=== PATIENT | female | born 1940 | race Caucasian/White ===

== ENCOUNTER 2018-04-28 08:46 | Day surgery (SDC) | payer MEDICARE, OTHER ==
[2018-04-28] VITALS (13 sets, daily range): BP systolic 112–152; BP diastolic 55–76
[~2018-04-28] VITALS: Ht 170.2 cm; Wt 56.4 kg
[~2018-04-28 08:46] MED LIST: HYDR-565 PO; LEVO25TA2 PO; OMEP-84 PO; ZOC40T PO
[2018-04-28] MEDS ORDERED: acetaminophen 325mg tablet PO PRN (09:05)
[2018-04-28] MEDS ORDERED: dexamethasone sod phosphate 4mg/ml inj. IV PRN (09:05)
[2018-04-28] MEDS ORDERED: diphenhydrAMINE 25mg capsule PO PRN (09:05)
== END 2018-04-28 14:30 | disposition home or self-care (01) ==
LOC: SSTAY O 08:46
PROVIDERS: ATTEND Internal Medicine Hematology & Oncology
DX: D46.9 Myelodysplastic syndrome, unspecified (principal); D69.3 Immune thrombocytopenic purpura; E78.5 Hyperlipidemia, unspecified; K21.9 Gastro-esophageal reflux disease without esophagitis; M19.90 Unspecified osteoarthritis, unspecified site; F41.8 Other specified anxiety disorders; E03.9 Hypothyroidism, unspecified; Z88.6 Allergy status to analgesic agent; Z88.0 Allergy status to penicillin; Z98.41 Cataract extraction status, right eye; Z98.42 Cataract extraction status, left eye; Z87.891 Personal history of nicotine dependence; Z85.820 Personal history of malignant melanoma of skin; Z85.3 Personal history of malignant neoplasm of breast; Z86.14 Personal history of Methicillin resistant Staphylococcus aureus infection; Z90.710 Acquired absence of both cervix and uterus; Z79.891 Long term (current) use of opiate analgesic; Z98.82 Breast implant status; Z90.10 Acquired absence of unspecified breast and nipple; Z79.899 Other long term (current) drug therapy; Z98.890 Other specified postprocedural states
CPT/HCPCS: 36415; 36430; 86644; 86885; 86900; 86901; 86920; 86945; J1100; J7030; P9016; Q0163

== ENCOUNTER 2018-06-09 09:11 | Day surgery (SDC) | payer MEDICARE, OTHER ==
[2018-06-09] VITALS (8 sets, daily range): BP systolic 103–132; BP diastolic 46–63
[~2018-06-09] VITALS: Ht 167.6 cm; Wt 56.8 kg
[~2018-06-09 09:11] MED LIST changes: +HYDR-4353 PO; -HYDR-565 PO
[2018-06-09] MEDS ORDERED: acetaminophen 325mg tablet PO ONE (09:45)
[2018-06-09] MEDS ORDERED: dexamethasone sod phosphate 4mg/ml inj. IV ONE (09:45)
[2018-06-09] MEDS ORDERED: diphenhydrAMINE 25mg capsule PO ONE (09:45)
[2018-06-09] MEDS ORDERED: DIAZ5TAB4 PO (10:04)
[2018-06-09] MEDS ORDERED: LIDOcaine 1% (10mg/ml) 2ml vial ONE (10:05)
== END 2018-06-09 15:05 | disposition home or self-care (01) ==
LOC: SSTAY O 09:11
PROVIDERS: ATTEND Internal Medicine Hematology & Oncology
DX: D46.9 Myelodysplastic syndrome, unspecified (principal); D69.8 Other specified hemorrhagic conditions; D69.6 Thrombocytopenia, unspecified; E78.5 Hyperlipidemia, unspecified; K21.9 Gastro-esophageal reflux disease without esophagitis; M19.90 Unspecified osteoarthritis, unspecified site; F41.8 Other specified anxiety disorders; Z87.891 Personal history of nicotine dependence; Z79.891 Long term (current) use of opiate analgesic; Z88.6 Allergy status to analgesic agent; Z88.0 Allergy status to penicillin; Z86.14 Personal history of Methicillin resistant Staphylococcus aureus infection; Z98.41 Cataract extraction status, right eye; Z98.42 Cataract extraction status, left eye; Z90.710 Acquired absence of both cervix and uterus; Z85.3 Personal history of malignant neoplasm of breast; Z85.820 Personal history of malignant melanoma of skin; Z90.10 Acquired absence of unspecified breast and nipple; Z79.899 Other long term (current) drug therapy; Z98.890 Other specified postprocedural states
CPT/HCPCS: 36415; 36430; 86644; 86885; 86900; 86901; 86920; 86945; J1100; J3490; P9016; Q0163

== ENCOUNTER 2018-07-07 08:57 | Day surgery (SDC) | payer MEDICARE, OTHER ==
[~2018-07-07] VITALS: Ht 167.6 cm; Wt 65.2 kg
[2018-07-07] VITALS (7 sets, daily range): BP systolic 105–148; BP diastolic 47–68
[~2018-07-07 08:57] MED LIST changes: +DIAZ5TAB4 PO
[2018-07-07] MEDS ORDERED: dexamethasone sod phosphate 4mg/ml inj. IV ONE (10:05)
[2018-07-07] MEDS ORDERED: acetaminophen 325mg tablet PO ONE (10:05)
[2018-07-07] MEDS ORDERED: diphenhydrAMINE 25mg capsule PO ONE (10:05)
== END 2018-07-07 14:00 | disposition home or self-care (01) ==
LOC: SSTAY O 08:57
PROVIDERS: ATTEND Internal Medicine Hematology & Oncology
DX: D46.9 Myelodysplastic syndrome, unspecified (principal); D69.6 Thrombocytopenia, unspecified; M19.90 Unspecified osteoarthritis, unspecified site; Z86.79 Personal history of other diseases of the circulatory system; Z85.820 Personal history of malignant melanoma of skin; Z85.3 Personal history of malignant neoplasm of breast; Z90.710 Acquired absence of both cervix and uterus; Z90.10 Acquired absence of unspecified breast and nipple; Z79.891 Long term (current) use of opiate analgesic; Z87.891 Personal history of nicotine dependence; Z79.899 Other long term (current) drug therapy; Z98.890 Other specified postprocedural states
CPT/HCPCS: 36415; 36430; 86885; 86900; 86901; 86920; J1100; P9016; Q0163

== ENCOUNTER 2018-07-22 08:49 | Day surgery (SDC) | payer MEDICARE, OTHER ==
[2018-07-22] VITALS (10 sets, daily range): BP systolic 118–145; BP diastolic 47–87
[~2018-07-22] VITALS: Ht 167.6 cm; Wt 58.5 kg
[2018-07-22] MEDS ORDERED: acetaminophen 325mg tablet PO ONE (09:10)
[2018-07-22] MEDS ORDERED: diphenhydrAMINE 25mg capsule PO ONE (09:10)
[2018-07-22] MEDS ORDERED: dexamethasone sod phosphate 4mg/ml inj. IV ONE (09:10)
== END 2018-07-22 13:50 | disposition home or self-care (01) ==
LOC: SSTAY O 08:49
PROVIDERS: ATTEND Internal Medicine Hematology & Oncology
DX: D46.9 Myelodysplastic syndrome, unspecified (principal); E78.5 Hyperlipidemia, unspecified; K21.9 Gastro-esophageal reflux disease without esophagitis; M19.90 Unspecified osteoarthritis, unspecified site; D69.6 Thrombocytopenia, unspecified; F41.8 Other specified anxiety disorders; Z86.14 Personal history of Methicillin resistant Staphylococcus aureus infection; Z85.820 Personal history of malignant melanoma of skin; Z85.3 Personal history of malignant neoplasm of breast; Z90.710 Acquired absence of both cervix and uterus; Z90.10 Acquired absence of unspecified breast and nipple; Z88.0 Allergy status to penicillin; Z79.891 Long term (current) use of opiate analgesic; Z87.891 Personal history of nicotine dependence; Z92.21 Personal history of antineoplastic chemotherapy; Z88.6 Allergy status to analgesic agent; Z86.79 Personal history of other diseases of the circulatory system; Z79.899 Other long term (current) drug therapy; Z98.890 Other specified postprocedural states
CPT/HCPCS: 36415; 36430; 86644; 86885; 86900; 86901; 86920; 86945; J1100; P9016; Q0163

== ENCOUNTER 2018-08-23 12:28 | Day surgery (SDC) | payer MEDICARE, OTHER ==
[2018-08-23 12:37] VITALS: BP 127/60
[2018-08-23] MEDS ORDERED: acetaminophen 325mg tablet PO ONE (12:55)
[2018-08-23] MEDS ORDERED: diphenhydrAMINE 25mg capsule PO ONE (12:55)
[2018-08-23] MEDS ORDERED: dexamethasone sod phosphate 4mg/ml inj. IV ONE (12:55)
[2018-08-23 13:46] VITALS: BP 131/60
[2018-08-23 14:01] VITALS: BP 126/60
[2018-08-23 15:08] VITALS: BP 136/60
[2018-08-23 15:30] VITALS: BP 120/57
[2018-08-23 16:37] VITALS: BP 119/61
== END 2018-08-23 14:45 | disposition home or self-care (01) ==
LOC: SSTAY O 12:28
PROVIDERS: ATTEND Internal Medicine Hematology & Oncology
DX: D46.9 Myelodysplastic syndrome, unspecified (principal); E78.5 Hyperlipidemia, unspecified; K21.9 Gastro-esophageal reflux disease without esophagitis; M19.90 Unspecified osteoarthritis, unspecified site; F41.8 Other specified anxiety disorders; D69.6 Thrombocytopenia, unspecified; Z88.6 Allergy status to analgesic agent; Z88.0 Allergy status to penicillin; Z87.891 Personal history of nicotine dependence; Z98.41 Cataract extraction status, right eye; Z98.42 Cataract extraction status, left eye; Z86.14 Personal history of Methicillin resistant Staphylococcus aureus infection; Z85.3 Personal history of malignant neoplasm of breast; Z85.820 Personal history of malignant melanoma of skin; Z90.710 Acquired absence of both cervix and uterus; Z90.10 Acquired absence of unspecified breast and nipple; Z79.899 Other long term (current) drug therapy; Z98.890 Other specified postprocedural states
CPT/HCPCS: 36415; 36430; 86644; 86885; 86900; 86901; 86920; 86945; J1100; P9016; Q0163

== ENCOUNTER 2018-09-15 08:53 | Day surgery (SDC) | payer MEDICARE, OTHER ==
[~2018-09-15] VITALS: Ht 167.6 cm; Wt 53.4 kg
[2018-09-15] VITALS (9 sets, daily range): BP systolic 114–149; BP diastolic 50–79
[2018-09-15] MEDS ORDERED: acetaminophen 325mg tablet PO ONE (09:55)
[2018-09-15] MEDS ORDERED: dexamethasone sod phosphate 10mg/ml inj IV SCH (09:55)
[2018-09-15] MEDS ORDERED: diphenhydrAMINE 25mg capsule PO ONE (09:55)
[2018-09-15] MEDS ORDERED: dexamethasone sod phosphate 4mg/ml inj. IV ONE (09:56)
[2018-09-15] MEDS ORDERED: dexamethasone sod phosphate 4mg/ml inj. IV SCH (09:56)
== END 2018-09-15 13:30 | disposition home or self-care (01) ==
LOC: SSTAY O 08:53
PROVIDERS: ATTEND Internal Medicine Hematology & Oncology
DX: D46.9 Myelodysplastic syndrome, unspecified (principal); D64.81 Anemia due to antineoplastic chemotherapy; I10 Essential (primary) hypertension; E78.5 Hyperlipidemia, unspecified; I48.91 Unspecified atrial fibrillation; I12.9 Hypertensive chronic kidney disease with stage 1 through stage 4 chronic kidney disease, or unspecified chronic kidney disease; N18.9 Chronic kidney disease, unspecified; M19.90 Unspecified osteoarthritis, unspecified site; Z86.73 Personal history of transient ischemic attack (TIA), and cerebral infarction without residual deficits; Z96.649 Presence of unspecified artificial hip joint; Z79.899 Other long term (current) drug therapy; Z98.890 Other specified postprocedural states
CPT/HCPCS: 36415; 36430; 86885; 86900; 86901; 86920; 86945; J1100; P9016; Q0163

== ENCOUNTER 2019-01-12 11:53 | Day surgery (SDC) | payer MEDICARE, OTHER ==
[2019-01-12] VITALS (10 sets, daily range): BP systolic 121–140; BP diastolic 60–72
[~2019-01-12] VITALS: Ht 167.6 cm; Wt 82.5 kg
[2019-01-12] MEDS ORDERED: diphenhydrAMINE 25mg capsule PO ONE (12:30)
[2019-01-12] MEDS ORDERED: dexamethasone sod phosphate 4mg/ml inj. IV ONE (12:30)
[2019-01-12] MEDS ORDERED: acetaminophen 325mg tablet PO ONE (12:30)
[2019-01-12] MEDS ORDERED: heparin sodium, porcine/PF 100unit/ml 5ML syringe IV ONE (16:00)
[2019-01-12 16:35] LABS: LYMPHOCYTES # (AUTO) 0.1 X10'3 (1.1-4.8); MONOCYTES # (AUTO) 0.1 X10'3 (0-0.9); NEUTROPHILS # (AUTO) 0.7 X10'3 (1.8-7.7)
[2019-01-12 16:57] LABS: BASOPHILS % (AUTO) 2.7 % (0-1); EOSINOPHILS % (AUTO) 1.6 % (0-6); HEMATOCRIT 36.8 % (35.0-45.0); HEMOGLOBIN 12.6 g/dl (12.0-16.0); LYMPHOCYTES % (AUTO) 14.8 % (21-51); MEAN CORPUSCULAR HEMOGLOBIN 28.4 PG (27.0-31.0); MEAN CORPUSCULAR HGB CONC 34.3 g/dL (33.0-36.5); MEAN PLATELET VOLUME 8.9 FL (7.4-10.4); MONOCYTES % (AUTO) 10.4 % (2-12); NEUTROPHILS % (AUTO) 70.5 % (42-75); RED BLOOD COUNT 4.43 X10'6 (4.20-5.60); RED CELL DISTRIBUTION WIDTH 15.6 % (11.5-14.5)
[2019-01-12 16:58] LABS: PLATELET COUNT 43 X10'3 (140-440); WHITE BLOOD COUNT 0.9 X10'3 (4.5-11.0)
[2019-01-12 16:59] LABS: HYPOGRANULAR PLATELETS FEW; LARGE PLATELETS FEW; PLATELET ESTIMATE DECREASED
[2019-01-12 17:00] LABS: ELLIPTOCYTES FEW; POIKILOCYTOSIS 1+; SCHISTOCYTES FEW
[2019-01-12 17:01] LABS: GIANT PLATELET FEW
== END 2019-01-12 17:40 | disposition home or self-care (01) ==
LOC: SSTAY O 11:53
PROVIDERS: ATTEND Internal Medicine Hematology & Oncology
DX: D46.9 Myelodysplastic syndrome, unspecified (principal)
CPT/HCPCS: 36415; 36430; 85025; 86644; 86885; 86900; 86901; 86920; 86945; J1100; J1642; P9016; Q0163

== ENCOUNTER 2019-01-25 08:55 | Day surgery (SDC) | payer MEDICARE, OTHER ==
[2019-01-25] VITALS (11 sets, daily range): BP systolic 120–140; BP diastolic 65–73
[~2019-01-25] VITALS: Ht 167.6 cm; Wt 51.0 kg
[2019-01-25] MEDS ORDERED: acetaminophen 325mg tablet PO ONE (09:25)
[2019-01-25] MEDS ORDERED: diphenhydrAMINE 25mg capsule PO ONE (09:30)
[2019-01-25] MEDS ORDERED: dexamethasone sod phosphate 4mg/ml inj. IV ONE (09:30)
[2019-01-25] MEDS ORDERED: heparin sodium, porcine/PF 100unit/ml 5ML syringe IV ONE (14:30)
== END 2019-01-25 14:55 | disposition home or self-care (01) ==
LOC: SSTAY O 08:55
PROVIDERS: ATTEND Internal Medicine Hematology & Oncology
DX: D64.81 Anemia due to antineoplastic chemotherapy (principal)
CPT/HCPCS: 36415; 36430; 86885; 86900; 86901; 86920; 86945; J1100; J1642; P9016; Q0163

== ENCOUNTER 2019-02-02 09:45 | Day surgery (SDC) | payer MEDICARE, OTHER ==
[~2019-02-02] VITALS: Ht 167.6 cm; Wt 46.8 kg
[2019-02-02 10:00] VITALS: BP 135/75
[2019-02-02] MEDS ORDERED: acetaminophen 325mg tablet PO ONE (10:00)
[2019-02-02] MEDS ORDERED: dexamethasone sod phosphate 4mg/ml inj. IV ONE (10:00)
[2019-02-02] MEDS ORDERED: diphenhydrAMINE 25mg capsule PO ONE (10:00)
[2019-02-02 10:54] VITALS: BP 120/65
[2019-02-02 11:17] VITALS: BP 124/61
[2019-02-02 12:17] VITALS: BP 132/62
[2019-02-02] MEDS ORDERED: heparin sodium, porcine/PF 100unit/ml 5ML syringe IV ONE (12:45)
[2019-02-02 13:00] VITALS: BP 126/69
[2019-02-02 13:20] VITALS: BP 132/62
== END 2019-02-02 13:20 | disposition home or self-care (01) ==
LOC: SSTAY O 09:45
PROVIDERS: ATTEND Internal Medicine Hematology & Oncology
DX: D46.9 Myelodysplastic syndrome, unspecified (principal)
CPT/HCPCS: 36415; 36430; 86885; 86900; 86901; 86920; 86945; J1642; P9016

== ENCOUNTER 2019-02-07 12:55 | Day surgery (SDC) | payer MEDICARE, OTHER ==
[2019-02-07] VITALS (9 sets, daily range): BP systolic 113–142; BP diastolic 55–73
[2019-02-07] MEDS ORDERED: heparin sodium, porcine/PF 100unit/ml 5ML syringe IV ONE (17:40)
--- NOTE | 2019-02-07 18:05 | NUR ---
PT TRANSPORTED VIA W/C TO HOSPITAL ENTRANCE AND DISCHARGED HOME. PT HAD ALL BELONGINGS.
== END 2019-02-07 18:05 | disposition home or self-care (01) ==
LOC: SSTAY O 12:55
PROVIDERS: ATTEND Internal Medicine Hematology & Oncology
DX: D46.9 Myelodysplastic syndrome, unspecified (principal)
CPT/HCPCS: 36415; 36430; 86644; 86885; 86900; 86901; 86920; 86945; J1642; P9016